=== PATIENT | male | born 1960 | race Caucasian/White ===

== ENCOUNTER 2019-03-01 18:25 | Outpatient (CLI) | payer OTHER | END 2019-03-01 18:26 | disposition short-term general hospital (02) | LOC: EMS 18:25 | PROVIDERS: ATTEND Surgery | DX: R53.1 Weakness (principal); R27.8 Other lack of coordination; R25.1 Tremor, unspecified | CPT/HCPCS: A0425; A0429 ==

== ENCOUNTER 2019-04-17 21:18 | Outpatient (CLI) | payer OTHER | END 2019-04-17 21:19 | disposition short-term general hospital (02) | LOC: EMS 21:18 | PROVIDERS: ATTEND Surgery | DX: R56.9 Unspecified convulsions (principal); R32 Unspecified urinary incontinence; R41.0 Disorientation, unspecified; R20.0 Anesthesia of skin | CPT/HCPCS: A0425; A0427 ==

== ENCOUNTER 2019-06-21 10:51 | Outpatient (CLI) | payer OTHER ==
[2019-06-21 11:46] LABS: CRP HIGH SENSITIVITY 2.2 mg/L; MAGNESIUM 2.6 mg/dL (1.7-2.8)
[2019-06-21 11:53] LABS: HEMOGLOBIN A1C 0.67 g/dL; HEMOGLOBIN A1C % 5.8 % (4.6-6.2)
== END 2019-06-21 10:52 | disposition home or self-care (01) ==
LOC: LAB 10:51
PROVIDERS: ATTEND Naturopath
DX: C71.1 Malignant neoplasm of frontal lobe (principal); Z79.52 Long term (current) use of systemic steroids; E66.3 Overweight
CPT/HCPCS: 36415; 82306; 82390; 82525; 82977; 83036; 83090; 83735; 84450; 84460; 84630; 85384; 85651; 86141

== ENCOUNTER 2019-08-15 12:05 | Emergency (ER) | payer OTHER ==
[2019-08-15 13:17] LABS: BASOPHILS % (AUTO) 0.2 %; HGB - HEMOGLOBIN 14.5 g/dL (14.0-18.0); LYMPHOCYTES # (AUTO) 0.3 10^3/uL (1.5-3.5); LYMPHOCYTES % (AUTO) 4.1 %; MEAN CORPUSCULAR HEMOGLOBIN 32.5 pg (27.0-31.0); MEAN CORPUSCULAR HGB CONC 32.9 g/dL (32.0-36.0); MEAN CORPUSCULAR VOLUME 98.9 fL (80.0-94.0); MEAN PLATELET VOLUME 9.4 fL (7.4-11.4); MONOCYTES # (AUTO) 0.4 10^3/uL (0.0-1.0); MONOCYTES % (AUTO) 4.8 %; NEUTROPHILS # (AUTO) 7.3 10^3/uL (1.5-6.6); PLT - PLATELET COUNT 243 10^3/uL (130-450); RED BLOOD COUNT 4.46 10^6/uL (4.70-6.10); RED CELL DISTRIBUTION WIDTH 15.6 % (12.0-15.0); WHITE BLOOD COUNT 8.1 x10^3/uL (4.8-10.8)
--- NOTE | 2019-08-15 13:18 | ED Physician Documentation ---
PD HPI ABD PAIN - Stated complaint Stated Complaint: ABD PX - Chief complaint Chief Complaint: Abd Pain - History obtained from History obtained from: Patient, Family - History of Present Illness Quality: Cramping Location: All over / everywhere Radiation: No: Chest, , Lower back, Left flank, Left shoulder, Right flank, Right shoulder, Upper back Improved by: Other (Nothing) Worsened by: Other (Nothing) Associated symptoms: No: Fever, Nausea, Vomiting, Hematemesis, Diarrhea, Constipation, Melena, Hematochezia, Dysuria, Hematuria - Additional information Additional information: Patient is a 59-year-old male with a history of stage IV glioblastoma. He states he has not had ongoing abdominal pain for the past week or so. He states it follows a sign wave pattern. Sometimes at last for a few minutes, sometimes all day or several hours. Nothing makes it better or worse. He states he has been having normal bowel movements. 2 bowel movements today. No vomiting. Has not taken anything for the pain. Sent here by his doctor for evaluation. Review of Systems Constitutional: denies: Fever, Chills GI: denies: Vomiting, Diarrhea Skin: denies: Rash Musculoskeletal: denies: Neck pain, Back pain Neurologic: denies: Headache PD PAST MEDICAL HISTORY - Past Medical History Past Medical History: Yes Neuro: Seizure disorder - Past Surgical History Past Surgical History: Yes - Present Medications Home Medications: Ambulatory Orders Medication Instructions Recorded Confirmed dexAMETHasone [Decadron] 5 mg PO TID 06/14/19 06/14/19 levETIRAcetam [Keppra] 1,000 mg PO BID 06/14/19 06/14/19 Oxycodone HCl 5 - 10 mg PO Q6H PRN #14 tablet 08/15/19 - Allergies Allergies/Adverse Reactions: Allergies Allergy/AdvReac Type Severity Reaction Status Date / Time No Known Drug Allergies Allergy Verified 08/15/19 12:48 - Social History Does the pt smoke?: No Smoking Status: Never smoker Does the pt drink ETOH?: No Does the pt have substance abuse?: No - Immunizations Immunizations are current?: Yes - POLST Patient has POLST: No PD ED PE NORMAL - Vitals Vital signs reviewed: Yes - General General: Alert and oriented X 3, No acute distress, Well developed/nourished - HEENT HEENT: PERRL, Moist mucous membranes - Neck Neck: Supple, no meningeal sign - Cardiac Cardiac: RRR, Strong equal pulses - Respiratory Respiratory: No respiratory distress, Clear bilaterally - Abdomen Abdomen: Normal bowel sounds, Soft, Non tender, Non distended - Derm Derm: Warm and dry - Extremities Extremities: No edema, No calf tenderness / cord - Neuro Neuro: Alert and oriented X 3 - Psych Psych: Normal mood, Normal affect Results - Vitals Vitals: Vital Signs - 24 hr 08/15/19 08/15/19 08/15/19 12:36 12:48 15:29 Temperature 37.2 C 37.2 C 36.4 C L Heart Rate 92 92 69 Respiratory 20 20 12 Rate Blood Pressure 137/87 H 137/87 H 134/92 H O2 Saturation 99 99 98 Oxygen O2 Source Room air - Labs Labs: Laboratory Tests 08/15/19 08/15/19 08/15/19 13:06 13:06 14:20 WBC 8.1 RBC 4.46 L Hgb 14.5 Hct 44.1 MCV 98.9 H MCH 32.5 H MCHC 32.9 RDW 15.6 H Plt Count 243 MPV 9.4 Neut # (Auto) 7.3 H Lymph # (Auto) 0.3 L [place] # (Auto) 0.4 Eos # (Auto) 0.0 Baso # (Auto) 0.0 Absolute Nucleated RBC 0.00 Nucleated RBC % 0.0 Sodium 141 Potassium 3.8 Chloride 105 Carbon Dioxide 26 Anion Gap 10.0 BUN 10 Creatinine 0.6 Estimated GFR (MDRD) 137 Glucose 122 H Calcium 9.3 Total Bilirubin 0.6 AST 24 ALT 24 Alkaline Phosphatase 52 Total Protein 7.1 Albumin 4.2 Globulin 2.9 Albumin/Globulin Ratio 1.4 Lipase 31 Urine Color YELLOW Urine Clarity CLEAR Urine pH 7.5 Ur Specific [place] 1.015 Urine Protein NEGATIVE Urine Glucose (UA) NEGATIVE Urine Ketones NEGATIVE Urine Occult Blood NEGATIVE Urine Nitrite NEGATIVE Urine Bilirubin NEGATIVE Urine Urobilinogen 0.2 (NORMAL) Ur Leukocyte Esterase NEGATIVE Ur Microscopic Review NOT INDICATED Urine Culture Comments NOT INDICATED - Rads (name of study) abd/pelvis CT Radiology: Prelim report reviewed, EMP read contemporaneously, See rad report (No acute abnormality) PD MEDICAL DECISION MAKING - ED course Complexity details: reviewed results, re-evaluated patient, considered differential, d/w patient, 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 No significant lab abnormalities. Normal CT. Pain resolved with oxycodone. Will prescribe this for home. He has stage IV glioblastoma. Reviewed the case with his oncologist, Dr. Marquez. Patient counseled regarding signs and symptoms for which I believe and urgent re-evaluation would be necessary. Patient with good understanding of and agreement to plan and is comfortable going home at this time This document was made in part using voice recognition software. While efforts are made to proofread this document, sound alike and grammatical errors may occur. Departure - Departure Disposition: Home, Self Care Clinical Impression: Abdominal pain Qualifiers: Abdominal location: unspecified location Qualified Code(s): R10.9 - Unspecified abdominal pain Condition: Good Instructions: ED Abdominal Pain Unkn Cause Follow-Up: Shan Edmond MD [Primary Care Provider] - Within 1 week Prescriptions: Oxycodone HCl 5 - 10 mg PO Q6H PRN #14 tablet PRN Reason: pain Comments: The cause of your symptoms is unclear today. Return if you worsen. Follow-up with your doctor for further care. Your labs and CT scan are normal. Discharge Date/Time: 08/15/19 15:59
[2019-08-15] MEDS ORDERED: SODIUM CHLORIDE 0.9% 1,000 ML IV ONE (13:28)
[2019-08-15 13:30] LABS: ALBUMIN 4.2 g/dL (3.2-5.5); ALBUMIN/GLOBULIN RATIO 1.4 (1.0-2.2); BILIRUBIN,TOTAL 0.6 mg/dL (0.2-1.0); CALCIUM 9.3 mg/dL (8.5-10.3); CREATININE 0.6 mg/dL (0.6-1.2); TOTAL PROTEIN 7.1 g/dL (6.7-8.2)
[2019-08-15] MEDS ORDERED: oxyCODONE 5 MG TABLET PO STA (13:32)
[2019-08-15] MEDS ORDERED: IOVERSOL 320 100 ML VIAL IVP ONE ×2 (14:19→15:23)
[2019-08-15 14:26] LABS: BILIRUBIN,URINE NEGATIVE (NEGATIVE); CLARITY,URINE CLEAR (CLEAR); GLUCOSE, URINE (UA) NEGATIVE (NEGATIVE); KETONES,URINE (UA) NEGATIVE (NEGATIVE); LEUKOCYTE ESTERASE, URINE NEGATIVE (NEGATIVE); NITRITE,URINE NEGATIVE (NEGATIVE); OCCULT BLOOD,URINE NEGATIVE (NEGATIVE); PH,URINE 7.5 PH (5.0-7.5); PROTEIN,URINE NEGATIVE (NEGATIVE); UROBILINOGEN,URINE 0.2 (NORMAL) E.U./dL (NORMAL)
[2019-08-15 15:30] VITALS: BP 134/92
--- NOTE | 2019-08-15 15:38 | CT Report ---
Reason: diffuse abd pain, h/o stage 4 glioblastoma Procedure Date: 08/15/2019 Accession Number: [id number] / [id number] Procedure: CT - Abdomen/Pelvis W CPT Code: Final Report FULL RESULT: EXAM: CT ABDOMEN AND PELVIS EXAM DATE: 08/15/2019 02:58 PM. CLINICAL HISTORY: Diffuse abd pain, h/o stage 4 glioblastoma. COMPARISONS: None. TECHNIQUE: Routine helical CT imaging was performed through the abdomen and pelvis. IV contrast: OPTIRAY 320. Enteric contrast: No. Reconstructions: Coronal and sagittal. In accordance with CT protocol optimization, one or more of the following dose reduction techniques were utilized for this exam: automated exposure control, adjustment of mA and/or KV based on patient size, or use of iterative reconstructive technique. FINDINGS: Lung Bases: Posterior small right fat-containing Bochdalek hernia. Coronary artery calcifications. Liver: Subcentimeter densities too small to characterize segment 4B Calcified granuloma. Gallbladder/Bile Ducts: Unremarkable. Spleen: Prior granulomatous disease. Pancreas: Normal. Adrenal Glands: Normal. Kidneys: Normal. No masses or hydronephrosis. Peritoneal Cavity/Bowel: Fat-containing supraumbilical and umbilical hernia. diverticulosis. Increased fecal material. Mild increased peak material No free fluid, free air or adenopathy. No masses or acute inflammatory process. The appendix is well visualized and normal. Pelvic Organs: Fat-containing right inguinal hernia . Prostate calcifications. The bladder and visualized pelvic organs are otherwise within normal limits. Vasculature: No aneurysms or other significant abnormality. Bones: No significant abnormality. Other: None. IMPRESSION: 1. Diverticulosis. 2. Normal appendix. 3. Fat-containing supraumbilical and umbilical hernia. [facility]IA
== END 2019-08-15 15:59 | disposition home or self-care (01) ==
LOC: ED 12:05
DX: R10.9 Unspecified abdominal pain (principal); C71.9 Malignant neoplasm of brain, unspecified
CPT/HCPCS: 36415; 74177; 80053; 81003; 83690; 85025; 96360; 99284; A9270; Q9967; 81001; 87086

== ENCOUNTER 2019-08-17 11:46 | Outpatient (CLI) | payer OTHER ==
--- NOTE | 2019-08-17 15:27 | CT Report ---
Reason: MALIGNANT NEOPLASM OF FRONTAL LOBE Procedure Date: 08/17/2019 Accession Number: [id number] / [id number] Procedure: CT - HEAD WO CPT Code: Final Report FULL RESULT: EXAM: CT HEAD EXAM DATE: 08/17/2019 12:20 PM. CLINICAL HISTORY: Malignant neoplasm of frontal lobe. COMPARISON: None. TECHNIQUE: Multiaxial CT images were obtained from the foramen magnum to the vertex. Reformats: Sagittal and coronal. IV contrast: None. In accordance with CT protocol optimization, one or more of the following dose reduction techniques were utilized for this exam: automated exposure control, adjustment of mA and/or KV based on patient size, or use of iterative reconstructive technique. FINDINGS: In the anterior, superior left frontal craniotomy flap is noted. Mastoid air cells are well aerated. There is low attenuation and volume loss in the anterior superior left frontal lobe centered on the superior frontal gyrus. A small amount of hyperattenuation is seen along the medial aspect of this region. This could reflect postsurgical change/mineralization. This is seen on image 22 series 3. Immediately posterior to the area of volume loss in the left frontal lobe just anterior to the central sulcus there is a 2.2 cm area of low attenuation image 22 series 3. No intracranial mass or hemorrhage is identified by noncontrast head CT. Ventricles are normal in size and configuration. No extra-axial fluid collection is present. IMPRESSION: 1. A prior left frontal craniotomy is seen. Encephalomalacia is seen in the anterior, superior left frontal lobe centered on the superior frontal gyrus. 2. Immediately posterior to the area of encephalomalacia is an area of low attenuation without clear mass effect. This could reflect a region of post treatment change. One might consider MRI of brain with contrast to further characterize this finding. [facility]
== END 2019-08-17 11:47 | disposition home or self-care (01) ==
LOC: DI 11:46
PROVIDERS: ATTEND Internal Medicine
DX: C71.1 Malignant neoplasm of frontal lobe (principal); G93.89 Other specified disorders of brain
CPT/HCPCS: 70450